=== PATIENT | female | born 1985 | race Caucasian/White ===

== ENCOUNTER → 2024-10-02 06:33 | Outpatient (REF) | payer BC, SELFPAY | LOC: HWCARD 06:33 | PROVIDERS: ATTENDING PHYSICIAN Family Medicine | DX: Z13.6 Encounter for screening for cardiovascular disorders (principal); Z82.49 Family history of ischemic heart disease and other diseases of the circulatory system; R53.82 Chronic fatigue, unspecified | CPT/HCPCS: 93005 ==

== ENCOUNTER → 2024-10-15 14:34 | Outpatient (REF) | payer BC, SELFPAY | LOC: RCS 14:34 | PROVIDERS: ATTENDING PHYSICIAN Family Medicine | DX: Z13.6 Encounter for screening for cardiovascular disorders (principal); R53.82 Chronic fatigue, unspecified; Z82.49 Family history of ischemic heart disease and other diseases of the circulatory system | CPT/HCPCS: 93306 ==